=== PATIENT | male | born 1985 | race Hispanic/Latino ===

== ENCOUNTER 2017-03-04 11:46 | Emergency (ER) | payer MEDICAID ==
[2017-03-04 12:10] VITALS: BMI 28.7
[2017-03-04 12:11] VITALS: BP 149/84; PULSE 83; RESP 18; TEMP 98.7; O2SAT 98
[2017-03-04] MEDS ORDERED: Lidocaine 1% Inj (20ml) IJ ONE (12:26)
[2017-03-04] MEDS ORDERED: Lidocaine 1% Inj (20ml) ONE (12:51)
--- NOTE | 2017-03-04 12:54 | ED PDOC ---
Upper Extremity Pain/Injury Time Seen by Provider: 03/04/17 12:12 Chief Complaint (Nursing): Upper Extremity Problem/Injury Chief Complaint (Provider): Laceration of left arm History Per: Patient History/Exam Limitations: no limitations Onset/Duration Of Symptoms: Days (x1) Current Symptoms Are (Timing): Still Present Additional Complaint(s): Zachariah is a 31 y/o male who presents to the ED for evaluation of laceration to his left forearm. States that earlier today he struck his left forearm against a metal railing, causing the laceration. Offers no further complaints at this time. Tetanus is up to date. PMD: Unknown Past Medical History Reviewed: Historical Data, Nursing Documentation, Vital Signs Vital Signs: Last Vital Signs Temp 98.7 F 03/04/17 12:10 Pulse 83 03/04/17 12:10 Resp 18 03/04/17 12:10 BP 149/84 03/04/17 12:10 Pulse Ox 98 03/04/17 12:10 - Medical History PMH: Asthma - Family History Family History: States: Unknown Family Hx - Social History Current smoker - smoking cessation education provided: Yes Alcohol: Social Drugs: Other (yes) - Immunization History Hx Tetanus Toxoid Vaccination: Yes Hx Influenza Vaccination: Yes - Home Medications Home Medications: Ambulatory Orders Medication Instructions Recorded Albuterol HFA [Ventolin HFA 90 2 puff INH Q4 PRN 02/17/16 mcg/actuation (8 g)] Clindamycin [Cleocin] 300 mg PO BID #14 cap 02/17/16 Gentamicin Sulfate [Garamycin 0.3% 1 ml OU BID #1 bottle 02/17/16 Opt] - Allergies Allergies/Adverse Reactions: Allergies Allergy/AdvReac Type Severity Reaction Status Date / Time No Known Allergies Allergy Unverified 06/08/14 17:06 Review of Systems ROS Statement: Except As Marked, All Systems Reviewed And Found Negative Constitutional: Negative for: Fever, Chills Skin: Positive for: Lesions (Laceration on left forearm) Neurological: Negative for: Weakness, Numbness (and tingling) Physical Exam - Reviewed Nursing Documentation Reviewed: Yes Vital Signs Reviewed: Yes - Physical Exam Appears: Positive for: Well, Non-toxic, No Acute Distress Head Exam: Positive for: ATRAUMATIC, NORMAL INSPECTION, NORMOCEPHALIC Skin: Positive for: Normal Color, Warm, Dry Eye Exam: Positive for: EOMI, Normal appearance, PERRL Neck: Positive for: Normal, Painless ROM, Supple Extremity: Positive for: Normal ROM, Other (0.5 cm superficial linear laceration on the posterior left forearm). Negative for: Pedal Edema Neurologic/Psych: Positive for: Alert, Oriented. Negative for: Motor/Sensory Deficits - ECG O2 Sat by Pulse Oximetry: 98 (RA) Pulse Ox Interpretation: Normal Medical Decision Making Medical Decision Making: Time: 12:22 Initial Plan: --Ordered Lidocaine 1% --Will repair laceration --Pending X-Ray Left Forearm Scribe Attestation: Documented by Esme Madrid, acting as a scribe for Isaac Griffiths PA-C Provider Scribe Attestation: All medical record entries made by the Scribe were at my direction and personally dictated by me. I have reviewed the chart and agree that the record accurately reflects my personal performance of the history, physical exam, medical decision making, and the department course for this patient. I have also personally directed, reviewed, and agree with the discharge instructions and disposition. Procedures - Time-Out Type of Procedure: laceration repair Site of Procedure: L forearm Correct Patient: Yes Correct Procedure: Yes Correct Site Marked: Yes X-Ray Marked: Yes PA/Tech: Aye - Laceration/Wound Repair Laceration repair Wound Length (cm): 1 Wound's Depth, Shape: superficial Wound Explored: clean Irrigated w/ Saline (ccs): 500 Betadine Prep?: Yes Anesthesia: 1% Lidocaine Volume Anesthetic (ccs): 3 Wound Repaired With: Sutures Suture Size/Type: 4:0, proline Number of Sutures: 3 Layer Closure?: No Wound Complexity: Simple Disposition - Clinical Impression Clinical Impression: Forearm laceration - Patient ED Disposition Is Patient to be Admitted: No - Disposition [facility]Outside[facility] Disposition: Routine/Home Disposition Time: 13:19 Condition: STABLE Additional Instructions: Suture removal in 7 days. Instructions: Care For Your Stitches (ED) Forms: [employer] (Citizen Of [place])
[2017-03-04] MEDS ORDERED: Povidone Iodine Topical 10% Sol ONE (12:57)
--- NOTE | 2017-03-04 14:56 | RAD ---
HISTORY: trauma COMPARISON: No prior FINDINGS: BONES: Normal. No fracture. JOINTS: Normal. No osteoarthritis. SOFT TISSUE: Normal. OTHER FINDINGS: None . IMPRESSION: Normal Bone Xray.
== END 2017-03-04 15:29 | disposition home or self-care (01) ==
LOC: H.ER 11:46
DX: S51.812A Laceration without foreign body of left forearm, initial encounter (principal); W26.8XXA Contact with other sharp object(s), not elsewhere classified, initial encounter; Y92.89 Other specified places as the place of occurrence of the external cause

== ENCOUNTER 2017-03-13 17:58 | Emergency (ER) | payer MEDICAID ==
[2017-03-13 17:58] VITALS: BMI 28.7
[2017-03-13 18:17] VITALS: BP 137/74; PULSE 74; RESP 18; TEMP 98.8; O2SAT 100
--- NOTE | 2017-03-13 18:31 | ED PDOC ---
HPI: Wound Care - HPI Time Seen by Provider: 03/13/17 18:23 Chief Complaint (Nursing): Suture/Staple Removal Chief Complaint (Provider): suture removal History Per: Patient Exam Limitations: no limitations Onset/Duration Of Symptoms: Days (x1 week) Additional Complaint(s): Zachariah Delgado is a 31 year old male who presents to the emergency department for suture removal of laceration that was repaired on 03/04/2017. Patient denies any fever, chills, or drainage. Tetanus is up to date. Past Medical History Reviewed: Historical Data, Nursing Documentation, Vital Signs Vital Signs: Last Vital Signs Temp 98.8 F 03/13/17 18:14 Pulse 74 03/13/17 18:14 Resp 18 03/13/17 18:14 BP 137/74 03/13/17 18:14 Pulse Ox 100 03/13/17 18:14 - Medical History PMH: Asthma - Family History Family History: States: No Known Family Hx - Living Arrangements Living Arrangements: With Family - Social History Current smoker - smoking cessation education provided: Yes Alcohol: Social Drugs: Denies - Immunization History Hx Tetanus Toxoid Vaccination: Yes - Home Medications Home Medications: Ambulatory Orders Medication Instructions Recorded Albuterol HFA [Ventolin HFA 90 2 puff INH Q4 PRN 02/17/16 mcg/actuation (8 g)] Clindamycin [Cleocin] 300 mg PO BID #14 cap 02/17/16 Gentamicin Sulfate [Garamycin 0.3% 1 ml OU BID #1 bottle 02/17/16 Opth] - Allergies Allergies/Adverse Reactions: Allergies Allergy/AdvReac Type Severity Reaction Status Date / Time No Known Allergies Allergy Unverified 06/08/14 17:06 Review of Systems ROS Statement: Except As Marked, All Systems Reviewed And Found Negative Constitutional: Negative for: Fever, Chills Gastrointestinal: Negative for: Nausea Musculoskeletal: Positive for: Other (left forearm suture removal) Physical Exam - Reviewed Nursing Documentation Reviewed: Yes Vital Signs Reviewed: Yes - Physical Exam Appears: Positive for: Well, Non-toxic, No Acute Distress Eye Exam: Positive for: Normal appearance Extremity: Positive for: Other (Well healed suture laceration to left forearm. ) Neurologic/Psych: Positive for: Alert, Oriented - ECG O2 Sat by Pulse Oximetry: 100 (RA) Pulse Ox Interpretation: Normal Medical Decision Making Medical Decision Making: Initial Impression: 31 year old male coming for suture removal Initial Plan: -Sutures removed without any complications. The patient tolerated the procedure well and there were no complications. Wound care instructions provided. Scribe Attestation: Documented by Yoan Edwards, acting as a scribe for Bonnie HOOD. Provider Scribe Attestation: All medical record entries made by the Scribe were at my direction and personally dictated by me. I have reviewed the chart and agree that the record accurately reflects my personal performance of the history, physical exam, medical decision making, and the department course for this patient. I have also personally directed, reviewed, and agree with the discharge instructions and disposition. Disposition - Clinical Impression Clinical Impression: Removal of suture - Patient ED Disposition Is Patient to be Admitted: No Counseled Patient/Family Regarding: Diagnosis, Need For Followup - Disposition Referrals: [facility] [Outside] Disposition: Routine/Home Disposition Time: 18:29 Condition: STABLE Additional Instructions: Keep wound clean and dry. Follow up as needed with primary care doctor or with clinic. Instructions: Stitches Removal (ED) Forms: [employer] (Lao)
== END 2017-03-13 18:48 | disposition home or self-care (01) ==
LOC: H.ER 17:58
DX: Z48.02 Encounter for removal of sutures (principal)

== ENCOUNTER 2017-07-16 11:44 | Emergency (ER) | payer MEDICAID, OTHER ==
[2017-07-16 11:44] VITALS: BMI 28.7
[2017-07-16 11:56] VITALS: BP 175/96; PULSE 98; RESP 18; TEMP 98; O2SAT 99
--- NOTE | 2017-07-16 12:33 | ED PDOC ---
HPI: General Adult Chief Complaint (Nursing): Flu-like Symptoms Chief Complaint (Provider): Flu- like symtoms History Per: Patient History/Exam Limitations: no limitations Onset/Duration Of Symptoms: Days Have you had recent travel within the past 21 days to any of the following countries: [place], [place], [place] or [place]?: No Current Symptoms Are (Timing): Still Present Additional Complaint(s): 31yo male, presents to ED with complaints of cough, congestion and fever with a Tmax of 102 degrees since yesterday. Patient's daughter is also in the ED with similar complaints. The patient also reports mild abdominal pain but denies any nausea, vomiting or diarrhea. He has no other medical complaints. Past Medical History Reviewed: Historical Data, Nursing Documentation, Vital Signs Vital Signs: Last Vital Signs Temp 98 F 07/16/17 11:54 Pulse 98 H 07/16/17 11:54 Resp 18 07/16/17 11:54 BP 175/96 H 07/16/17 11:54 Pulse Ox 99 07/16/17 12:33 - Medical History PMH: Asthma - Surgical History Surgical History: No Surg Hx - Family History Family History: States: Unknown Family Hx - Immunization History Hx Tetanus Toxoid Vaccination: Yes Hx Influenza Vaccination: Yes - Home Medications Home Medications: Ambulatory Orders Medication Instructions Recorded Albuterol HFA [Ventolin HFA 90 2 puff INH Q4 PRN 02/17/16 mcg/actuation (8 g)] Clindamycin [Cleocin] 300 mg PO BID #14 cap 02/17/16 Gentamicin Sulfate [Garamycin 0.3% 1 ml OU BID #1 bottle 02/17/16 Opth] Albuterol HFA [Ventolin HFA 90 2 puff IH [id number] PRN #1 inhaler 04/18/17 mcg/actuation (8 g)] predniSONE [predniSONE Tab] 3 tab PO DAILY #12 tab 04/18/17 Oseltamivir [Tamiflu] 75 mg PO BID #10 cap 07/16/17 - Allergies Allergies/Adverse Reactions: Allergies Allergy/AdvReac Type Severity Reaction Status Date / Time No Known Allergies Allergy Unverified 06/08/14 17:06 Review of Systems ROS Statement: Except As Marked, All Systems Reviewed And Found Negative Constitutional: Positive for: Fever Respiratory: Positive for: Cough Gastrointestinal: Positive for: Abdominal Pain. Negative for: Nausea, Vomiting , Diarrhea Physical Exam - Reviewed Nursing Documentation Reviewed: Yes Vital Signs Reviewed: Yes - Physical Exam Appears: Positive for: Non-toxic, No Acute Distress Head Exam: Positive for: ATRAUMATIC, NORMAL INSPECTION, NORMOCEPHALIC Skin: Positive for: Normal Color Eye Exam: Positive for: Normal appearance Neck: Positive for: Supple Cardiovascular/Chest: Positive for: Regular Rate, Rhythm Respiratory: Positive for: Normal Breath Sounds. Negative for: Respiratory Distress Gastrointestinal/Abdominal: Positive for: Soft, Tenderness (mild upper abdomen tenderness) Neurologic/Psych: Positive for: Alert, Oriented - ECG O2 Sat by Pulse Oximetry: 99 (RA) Pulse Ox Interpretation: Normal Medical Decision Making Medical Decision Making: Impression: Flu like symptoms Plan: -- Patient to be discharged home with prescription for Tamiflu. Instructed to stay well hydrated and to take Motrin or Tylenol as needed for fever. Scribe Attestation: Documented by Sasha Mora acting as a scribe for SANA Rosario Provider Attestation: All medical record entries made by the Scribe were at my direction and personally dictated by me. I have reviewed the chart and agree that the record accurately reflects my personal performance of the history, physical exam, medical decision making, and the department course for this patient. I have also personally directed, reviewed, and agree with the discharge instructions and disposition. Disposition - Clinical Impression Clinical Impression: Influenza - Patient ED Disposition Is Patient to be Admitted: No - Disposition Disposition: Routine/Home Disposition Time: 12:23 Condition: STABLE Prescriptions: Oseltamivir [Tamiflu] 75 mg PO BID #10 cap Instructions: Influenza (ED) Forms: [employer] (Azeri), [facility] ED School/Work Excuse
== END 2017-07-16 13:04 | disposition home or self-care (01) ==
LOC: H.ER 11:44
DX: J11.1 Influenza due to unidentified influenza virus with other respiratory manifestations (principal); J45.909 Unspecified asthma, uncomplicated

== ENCOUNTER 2018-09-18 08:38 | Emergency (ER) | payer MEDICAID ==
[2018-09-18 08:43] VITALS: TEMP 98.4; O2SAT 97; BMI 30.2
--- NOTE | 2018-09-18 09:40 | ED PDOC ---
HPI: Back Time Seen by Provider: 09/18/18 09:18 Chief Complaint (Nursing): Back Pain Chief Complaint (Provider): Low back pain History Per: Patient History/Exam Limitations: no limitations Additional Complaint(s): Pt reports lower back pain X 2 months, intermittent, worse with movement, not relieved with Advil at home. Denies trauma, paresthesias, weakness. 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 Past Medical History Reviewed: Nursing Documentation, Vital Signs Vital Signs: Last Vital Signs Temp 98.4 F 09/18/18 08:42 Pulse 76 09/18/18 08:42 Resp 16 09/18/18 08:42 BP 157/87 H 09/18/18 08:42 Pulse Ox 97 09/18/18 08:42 - Medical History PMH: Asthma - Surgical History Surgical History: No Surg Hx - Family History Family History: States: Unknown Family Hx - Social History Current smoker - smoking cessation education provided: No Alcohol: None - Immunization History Hx Tetanus Toxoid Vaccination: Yes Hx Influenza Vaccination: Yes - Home Medications Home Medications: Ambulatory Orders Medication Instructions Recorded Albuterol HFA [Ventolin HFA 90 2 puff INH Q4 PRN 02/17/16 mcg/actuation (8 g)] Clindamycin [Cleocin] 300 mg PO BID #14 cap 02/17/16 Gentamicin Sulfate [Garamycin 0.3% 1 ml OU BID #1 bottle 02/17/16 Opth] Albuterol HFA [Ventolin HFA 90 2 puff IH [id number] PRN #1 inhaler 04/18/17 mcg/actuation (8 g)] predniSONE [predniSONE Tab] 3 tab PO DAILY #12 tab 04/18/17 Oseltamivir Cap [Tamiflu] 75 mg PO BID #10 cap 07/16/17 Ibuprofen [Motrin] 600 mg PO Q6H PRN #20 tab 09/18/18 Lidocaine 5% [Lidoderm] 1 ea TD DAILY PRN #10 patch 09/18/18 - Allergies Allergies/Adverse Reactions: Allergies Allergy/AdvReac Type Severity Reaction Status Date / Time No Known Allergies Allergy Unverified 06/08/14 17:06 Review of Systems Constitutional: Negative for: Fever Genitourinary Male: Negative for: Dysuria Musculoskeletal: Positive for: Back Pain. Negative for: Leg Pain Skin: Negative for: Rash, Lesions Physical Exam - Reviewed Nursing Documentation Reviewed: Yes Vital Signs Reviewed: Yes - Physical Exam Appears: Positive for: Well, No Acute Distress Head Exam: Positive for: ATRAUMATIC, NORMAL INSPECTION Skin: Positive for: Normal Color, Warm, Dry Eye Exam: Positive for: Normal appearance, EOMI, PERRL Cardiovascular/Chest: Positive for: Regular Rate, Rhythm Respiratory: Positive for: Normal Breath Sounds Back: Positive for: Normal Inspection, Vertebral Tenderness (Lumbar), Other (>30 degree straight raise bilaterally). Negative for: L CVA Tenderness, R CVA Tenderness, Decreased ROM, Muscle Spasm Extremity: Positive for: Normal ROM. Negative for: Tenderness, Swelling - ECG O2 Sat by Pulse Oximetry: 97 Medical Decision Making Medical Decision Makin yo male with lower back pain. - XR L-spine - Flexeril - Toradol Accession No. 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 HISTORY: Low back pain COMPARISON: No prior. TECHNIQUE: 5 views obtained. FINDINGS: BONES: L5 retro listhesis relative to S1. L5 slightly anterior subluxed relative to L4. Both grades are less than 1. No fracture. No definitive spondylolysis seen. Bilateral L5-S1 facet and lesser L4-5 facet hypertrophic arthrosis. Subluxation could be due to degenerative ligamentous laxity. Patient is 32 years of age is noted. Trace endplate spondylosis L4 and L5. DISC SPACES: Posterior disc space narrowing L4-5 and L5-S1. OTHER FINDINGS: Moderate stool retention. IMPRESSION: No fracture or definitive spondylolysis noted on this exam. However there are mild degrees of stepladder like malalignment subluxations at L4-L5 and S1 as detailed above. This could be due to facet hypertrophic arthrosis with associated ligamentous laxity. Patient's relative young age is noted. Disc disease changes also suggested. Findings discussed in detail with patient and need for follow-up. Disposition - Clinical Impression Clinical Impression: Vertebral subluxation - Disposition Referrals: [facility] [Outside] Disposition: Routine/Home Disposition Time: 11:30 Condition: STABLE Prescriptions: Ibuprofen [Motrin] 600 mg PO Q6H PRN #20 tab PRN Reason: Pain, Moderate (4-7) Lidocaine 5% [Lidoderm] 1 ea TD DAILY PRN #10 patch PRN Reason: Pain, Moderate (4-7) Instructions: Low Back Pain (DC) Forms: [email or web address] (Kiswahili)
--- NOTE | 2018-09-18 11:27 | RAD ---
Date of service: 09/18/2018 PROCEDURE: Radiographs of the Lumbar Spine. HISTORY: Low back pain COMPARISON: No prior. TECHNIQUE: 5 views obtained. FINDINGS: BONES: L5 retro listhesis relative to S1. L5 slightly anterior subluxed relative to L4. Both grades are less than 1. No fracture. No definitive spondylolysis seen. Bilateral L5-S1 facet and lesser L4-5 facet hypertrophic arthrosis. Subluxation could be due to degenerative ligamentous laxity. Patient is 32 years of age is noted. Trace endplate spondylosis L4 and L5. DISC SPACES: Posterior disc space narrowing L4-5 and L5-S1. OTHER FINDINGS: Moderate stool retention. IMPRESSION: No fracture or definitive spondylolysis noted on this exam. However there are mild degrees of stepladder like malalignment subluxations at L4-L5 and S1 as detailed above. This could be due to facet hypertrophic arthrosis with associated ligamentous laxity. Patient's relative young age is noted. Disc disease changes also suggested.
[2018-09-18 14:24] VITALS: BP 150/80; PULSE 72; RESP 18
== END 2018-09-18 12:25 | disposition home or self-care (01) ==
LOC: H.ER 08:38
DX: S13.100A Subluxation of unspecified cervical vertebrae, initial encounter (principal); X58.XXXA Exposure to other specified factors, initial encounter; Y92.89 Other specified places as the place of occurrence of the external cause
CPT/HCPCS: 72114; 96372; 99283; J1885

== ENCOUNTER 2018-11-04 22:14 | Emergency (ER) | payer MEDICAID ==
[2018-11-04 22:14] VITALS: BMI 30.2
[2018-11-04 22:23] VITALS: O2SAT 100
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
[2018-11-05 00:06] LABS: BASO # 0.1 K/uL (0.0-0.2); BASO % 0.4 % (0.0-2.0); EOS # 0.1 K/uL (0.0-0.7); EOS % 0.5 % (0.0-4.0); HEMOGLOBIN 13.8 g/dL (12.0-18.0); LYMPH # 1.6 K/uL (1.0-4.3); MEAN CELL VOLUME 91.5 fl (80.0-94.0); MEAN CORPUSCULAR HEMOGLOBIN 31.4 pg (27.0-31.0); MEAN CORPUSCULAR HGB CONC 34.3 g/dL (33.0-37.0); MEAN PLATELET VOLUME 8.3 fl (7.2-11.7); MONO # 0.8 K/uL (0.0-0.8); MONO % 5.9 % (0.0-10.0); NEUT # 11.7 K/uL (1.8-7.0); NEUT % 82.2 % (50.0-75.0); RBC 4.4 Mil/uL (4.40-5.90); RED CELL DISTRIBUTION WIDTH 12.9 % (11.5-14.5); WHITE BLOOD COUNT 14.2 K/uL (4.8-10.8)
[2018-11-05 00:13] LABS: ALB/GLOB RATIO 1.5 (1.0-2.1); ALBUMIN 4.6 g/dL (3.5-5.0); ALT/SGPT 48 U/L (21-72); AST/SGOT 41 U/L (17-59); BLOOD UREA NITROGEN 11 mg/dl (9-20); CALCIUM 9.4 mg/dL (8.4-10.2); GFR NON-AFRICAN AMERICAN > 60
[2018-11-05 00:18] LABS: BARBITURATES, UR NEGATIVE (NEGATIVE); BENZODIAZEPINES, UR NEGATIVE (NEGATIVE); OPIATES, UR NEGATIVE (NEGATIVE); PHENCYCLIDINE, UR NEGATIVE (NEGATIVE)
[2018-11-05 02:14] VITALS: RESP 18
[2018-11-05 04:08] VITALS: BP 128/74; PULSE 96; TEMP 99.1
--- NOTE | 2018-11-05 10:42 | RAD ---
Date of service: 11/05/2018 HISTORY: sob COMPARISON: 10/13/2014 TECHNIQUE: Chest PA and lateral views FINDINGS: LUNGS: No active pulmonary disease. PLEURA: No significant pleural effusion identified. No pneumothorax apparent. CARDIOVASCULAR: No aortic atherosclerotic calcification present. Normal cardiac size. No pulmonary vascular congestion. OSSEOUS STRUCTURES: No significant abnormalities. VISUALIZED UPPER ABDOMEN: Normal. OTHER FINDINGS: None. IMPRESSION: No active disease.
--- NOTE | 2018-11-05 17:02 | CARD ---
APPROVED REPORT Date of service: 11/04/2018 EKG Measurement Heart [id number] <Conclusion> Sinus tachycardia Otherwise normal ECG
== END 2018-11-05 03:10 ==
LOC: H.ER 22:14
DX: F12.10 Cannabis abuse, uncomplicated (principal); F17.210 Nicotine dependence, cigarettes, uncomplicated; J45.909 Unspecified asthma, uncomplicated